=== PATIENT | female | born 1935 | race Two or more races ===

== ENCOUNTER 2019-11-04 20:36 | Emergency (ER) | payer MEDICARE, OTHER ==
[~2019-11-04] VITALS: Ht 160 cm; Wt 78.5 kg
[2019-11-04 20:36] VITALS: BP 176/89
[2019-11-04] MEDS ORDERED: IBUPROFEN 400 MG TABLET PO ONE (21:00)
[2019-11-04] MEDS ORDERED: IBUPROFEN 400 MG TABLET ONE (21:01)
--- NOTE | 2019-11-04 21:30 | NUR ---
RADIOLOGY AT BEDSIDE
--- NOTE | 2019-11-04 23:42 | NUR ---
Patient discharged to home in stable condition. Written and verbal after care instructions given. Patient verbalizes understanding of instruction. Prescriptions are given and explained.
== END 2019-11-04 23:43 | disposition home or self-care (01) ==
LOC: ER 20:36 → EDBD 20:36 → ER 23:43
DX: S20.211A Contusion of right front wall of thorax, initial encounter (principal); S60.012A Contusion of left thumb without damage to nail, initial encounter; M25.511 Pain in right shoulder; I10 Essential (primary) hypertension; E03.9 Hypothyroidism, unspecified; Z95.818 Presence of other cardiac implants and grafts; V49.59XA Passenger injured in collision with other motor vehicles in traffic accident, initial encounter; Y93.89 Activity, other specified; Y92.413 State road as the place of occurrence of the external cause; Y99.8 Other external cause status
CPT/HCPCS: 71100-TC; 73030-TC; 73130-TC